=== PATIENT | female | born 1960 ===

== ENCOUNTER → 2017-06-11 | Day surgery (SDC) | payer BC ==
[~2017-06-11] MED LIST: ASPI81TA50 PO; CETI10TA22 PO; CRESTOR10 MG PO; HYDROmorphone 2 MG/ML VIAL IV PRN; IBUP-1060 PO; IV RINGERS,LACTATED 1000ML 1,000 ML IV SCH; LIDOCAINE 1% 1 ML SYRINGE. ID PRN; LIDOCAINE 2% PF Vial for OR 5 ML VIAL. ONE; MORPHINE SULFATE 2 MG/ML DISP.SYRIN. IV PRN; ONDANSETRON PF 4 MG/2 ML VIAL. IV PRN; PROCHLORPERAZINE 10 MG/2 ML VIAL. IV PRN; PROPOFOL 40 ML IV ONE; fentaNYL PF VIAL 100 MCG/2 ML VIAL IV PRN
[2017-06-11 11:05] VITALS: BP 125/68
--- NOTE | 2017-06-12 13:58 | PATHOLOGY ---
PATHOLOGY REPORT * * * * * * * * FINAL DIAGNOSIS: Colonic mucosa, "ascending colon polyp", biopsy: - Polypoid colonic mucosa with consistent with early hyperplastic polyp. - There is no evidence of adenomatous change, high-grade dysplasia or malignancy. ([facility]; 06/12/2017) REPORT ELECTRONICALLY SIGNED BY: Alex Keys M.D. DATE/TIME: 06/12/2017 13:57 * * * * * * * * GROSS PATHOLOGY: Received in formalin labeled "Shiloh Terrazas, ascending colon polyp," are two segments of tate soft tissue measuring 0.3 and 0.4 cm in maximum dimension. The specimen is submitted entirely in cassette A1. ([facility]; 06/11/17) INITIAL CPT CODE(S): A; 64865 Professional services performed [place] [address] Technical services performed by [facility] at [address] [place] [address]. SPECIMEN(S) RECEIVED: A.Ascending colon polyp CLINICAL HISTORY: Screening family history PATIENT: SHILOH TERRAZAS /AGE: 301/29/1960 (Age: 57) PATIENT #: [id number] ALT CASE #: SPECIMEN COLLECTION DATE: 06/11/2017 SPECIMEN RECEIVED DATE: 06/11/2017 [facility] - [address] [place] [address] - PHONE: [phone] * * * END OF REPORT * * *
== END | disposition home or self-care (01) ==
LOC: ENDOS 08:57
PROVIDERS: ATTEND Internal Medicine Gastroenterology
DX: Z12.11 Encounter for screening for malignant neoplasm of colon (principal); D12.2 Benign neoplasm of ascending colon; Z80.0 Family history of malignant neoplasm of digestive organs; K64.0 First degree hemorrhoids; M19.90 Unspecified osteoarthritis, unspecified site; E78.00 Pure hypercholesterolemia, unspecified; Z87.39 Personal history of other diseases of the musculoskeletal system and connective tissue; Z88.6 Allergy status to analgesic agent; Z88.8 Allergy status to other drugs, medicaments and biological substances
CPT/HCPCS: 45380; 88305; J2001; J2704

== ENCOUNTER 2019-04-29 06:11 | Day surgery (SDC) | payer BC ==
[~2019-04-29 06:11] MED LIST changes: +BUPIVACAINE MPF 0.5% 30 ML VIAL. ONE; +DOCU-109 PO; -HYDROmorphone 2 MG/ML VIAL IV PRN; -IV RINGERS,LACTATED 1000ML 1,000 ML IV SCH; -LIDOCAINE 1% 1 ML SYRINGE. ID PRN; -LIDOCAINE 2% PF Vial for OR 5 ML VIAL. ONE; -MORPHINE SULFATE 2 MG/ML DISP.SYRIN. IV PRN; -ONDANSETRON PF 4 MG/2 ML VIAL. IV PRN; -PROCHLORPERAZINE 10 MG/2 ML VIAL. IV PRN; -PROPOFOL 40 ML IV ONE; +ROPIVacaine 0.5% PF 20 ML VIAL. ONE; -fentaNYL PF VIAL 100 MCG/2 ML VIAL IV PRN
[2019-04-29] MEDS ORDERED: LIDOCAINE 2% PF 5 ML VIAL. ONE (06:58)
[2019-04-29] MEDS ORDERED: PROPOFOL 20 ML IV ONE (06:58)
[2019-04-29] MEDS ORDERED: fentaNYL PF VIAL 100 MCG/2 ML VIAL ONE ×2 (06:58→09:48)
[2019-04-29] MEDS ORDERED: LIDOCAINE 1% PF 2 ML VIAL. ID PRN (07:00)
[2019-04-29] MEDS ORDERED: IV RINGERS,LACTATED 1000ML 1,000 ML IV SCH (07:00)
[2019-04-29] MEDS ORDERED: ONDANSETRON PF 4 MG/2 ML VIAL. IV PRN (07:00)
[2019-04-29] MEDS ORDERED: PROCHLORPERAZINE 10 MG/2 ML VIAL. IV PRN (07:00)
[2019-04-29] MEDS ORDERED: fentaNYL PF VIAL 100 MCG/2 ML VIAL IV PRN ×2 (07:00)
[2019-04-29] MEDS ORDERED: SCOPOLAMINE 1.5MG PATCH. TD ONE (07:15)
[2019-04-29] MEDS ORDERED: SUCCINYLCHOLINE 200 MG/10 ML VIAL. ONE (07:17)
[2019-04-29] MEDS ORDERED: FAMOTIDINE 20 MG/2 ML VIAL ONE (07:54)
[2019-04-29] MEDS ORDERED: DEXAMETHASONE SOD PHOS 4 MG/ML VIAL ONE (07:54)
[2019-04-29] MEDS ORDERED: DESFLURANE 31 TO 60 MINUTES IH ONE (07:54)
[2019-04-29] MEDS ORDERED: ePHEDrine PF IN SALINE 50 MG/10 ML SYRINGE. IV ONE (07:55)
[2019-04-29] MEDS ORDERED: ONDANSETRON PF 4 MG/2 ML VIAL. ONE (07:55)
[2019-04-29] MEDS ORDERED: OXYC1TAB15 PO (09:24)
[2019-04-29 10:09] VITALS: BP 134/65
[2019-04-29] MEDS ORDERED: ASPI325T8 PO (10:26)
--- NOTE | 2019-04-29 10:33 | DISCH ---
DISCHARGE INSTRUCTIONS Condition on Discharge Condition on Discharge: Stable Activity After Discharge Activity Instructions for Disc: Other, see below (no hard grasp with left hand fine motor use only) Weight Bearing Status after Di: Non weight bearing Diet after Discharge Diet after Discharge: Regular Wound Incision Care Wound/Incision Care: Ice to area for comfort, Keep wound elevated, Do not change dressing Contacting the after DC Call your doctor for: Concerns you may have Follow-Up Follow up with: Dr. Archibald 10 days LESLIE ARCHIBALD MD April 29, 2019 10:33
[2019-04-29] MEDS ORDERED: ceFAZolin 2GM PREMIX 2 GM/50 ML BAG IV ONE (12:00)
--- NOTE | 2019-04-29 16:08 | PDOC4 ---
Operative Note Operative Note Date of surgery: 04/29/2019 Preoperative diagnosis: Displaced intra-articular left distal radius fracture Postoperative diagnosis: Same Operative procedure: Operative reduction internal fixation of 2 part intra- articular distal radius fracture left Surgeon: Cristela Anesthesia: Gen. Estimated blood loss: 5 mL Complications: None Tourniquet time approximately 1 hour Operative indications: Patient is a 59-year-old female that sustained the above fracture in a fall I had gone over with her the x-ray findings and the general unacceptability of her current alignment and the difficulty obtaining or maintaining alignment with a closed reduction as we had discussed in her clinic note. We described the possibility of operative reduction internal fixation as recommended the possibility of nerve or blood vessel damage delayed or nonhealing continued pain stiffness even with the best of results. All her questions were answered she wishes to proceed with surgical evaluation and treatment. Operative text: Patient was identified procedure verified patient placed in the supine position on the operating table. After adequate amounts of general anesthesia were administered the left upper extremity was prepped and draped in standard sterile fashion and after timeout was performed patient procedure identified and verified the left upper extremity was exsanguinated with Esmarch bandage tourniquet inflated to 250 mmHg and a volar Gabe approach was carried out to the left distal radius subperiosteal dissection was carried out anatomic reduction was carried out under multiple fluoroscopic views and a standard short Herman DVR distal radius locking plate was placed under fluoroscopic guidance an initial screw was placed in the sliding shaft screw. Final plate placement was then obtained and distal row locking screws were placed individually under fluoroscopic guidance ensuring good placement fracture reduction and avoidance of penetration into the joint proximal row locking screws were then placed as well as well as an additional shaft screw for fixation excellent reduction and hardware placement were noted under multiple fluoroscopic views thorough irrigation carried out normal saline solution subcutaneous closure with buried Vicryl suture skin closure subcuticular with 4-0 Monocryl Steri-Strips and Mastisol were applied followed by a well-padded volar splint patient was returned recovery room in stable condition having tolerated procedure well fingers were noted be warm pink following deflation of the tourniquet LESLIE PORRAS MD April 29, 2019 16:08
== END 2019-04-29 10:50 | disposition home or self-care (01) ==
LOC: SURG 06:11
PROVIDERS: ATTEND Orthopaedic Surgery
DX: S52.572A Other intraarticular fracture of lower end of left radius, initial encounter for closed fracture (principal); E78.00 Pure hypercholesterolemia, unspecified; Z79.82 Long term (current) use of aspirin; Z98.890 Other specified postprocedural states; X58.XXXA Exposure to other specified factors, initial encounter; Y93.89 Activity, other specified; Y92.89 Other specified places as the place of occurrence of the external cause; Y99.8 Other external cause status; Z88.5 Allergy status to narcotic agent
CPT/HCPCS: 25608; 76000; A7015; C1713; J0171; J0330; J0696; J1100; J2001; J2405; J2704; J3010; J3490; J7120; J2795